=== PATIENT | female | born 1950 | race Caucasian/White ===

== ENCOUNTER 2017-03-25 06:53 | Day surgery (SDC) | payer MEDICAID ==
[2017-03-25 07:28] VITALS: BMI 23.9
[2017-03-25] MEDS ORDERED: Propofol 10 mg/ml Inj (20 ML) ONE (08:09)
[2017-03-25] MEDS ORDERED: Midazolam 2 MG/2 ML VIAL ONE (08:10)
[2017-03-25 08:54] VITALS: O2SAT 95
[2017-03-25] MEDS ORDERED: Sodium Chloride 0.9% 1,000 ML IV SCH (09:00)
[2017-03-25 09:04] VITALS: PULSE 52
[2017-03-25 09:22] VITALS: BP 121/65; RESP 16; TEMP 97.6
== END 2017-03-25 09:52 | disposition home or self-care (01) ==
LOC: ENDO 06:53
PROVIDERS: ATTEND Internal Medicine
DX: K29.70 Gastritis, unspecified, without bleeding (principal); K21.9 Gastro-esophageal reflux disease without esophagitis
CPT/HCPCS: 43239; 88305; 88342; J2001; J2250; J2704; J3010; J7030; J7040

== ENCOUNTER 2018-03-01 11:31 | Emergency (ER) | payer MEDICARE, MEDICAID ==
[2018-03-01 11:32] VITALS: BMI 23.3
[2018-03-01 11:57] VITALS: TEMP 98.4
[2018-03-01] MEDS ORDERED: Oxycodone/Acetaminophen 5/325 mg Tab PO STA (12:20)
--- NOTE | 2018-03-01 12:26 | ED PDOC ---
Arrival/HPI - General Chief Complaint: Lower Extremity Problem/Injury Time Seen by Provider: 03/01/18 12:20 Historian: Patient, Family (son at bedside) - History of Present Illness Narrative History of Present Illness (Text): 03/01/18 12:22 pt p/w + accidental trip and fall last night, pt states she was walking and her footware got caught on something, pt fell forward and twisted her right ankle inwards, braced fall with b/l outstretched arm; NO LOC - pre/post fall, no head injury, no neck pain/injury; pt states + right foot/ankle pain with right shoulder pain; pt was unable to stand by herself post fall, pt can stand and bear weight but with pain and limps when walking; pt states her ankle/foot pain was a 10/10; pt took aleve yesterday and today with min relief; pt states no fever/chills/sweats, no cp/sob/palpitations, no abd pain, no n/v, no numbness/ tingling; pt denied urinary/bowel changes, pt is here for further eval; pt's without other complaints. PCP: DR TIERNEY + hx of osteoporosis; HTN pt is right hand dominate Time/Duration: 24 hours Symptom Onset: Sudden Symptom Course: Unchanged Quality: Aching, Pressure, Tightness Severity Level: 10, Severe Activities at Onset: Other (with movement) Context: Walking, Exertion, Home, Other Past Medical History - Provider Review Nursing Documentation Reviewed: Yes - Travel History Have you recently traveled outside [place] w/in the past 3 mons?: No - Past History Past History: No Previous - Infectious Disease Hx of Infectious Diseases: None - Tetanus Immunization Tetanus Immunization: Unknown - Reproductive Menopause: Yes Currently : No - Cardiac Hx Hypertension: Yes - Neurological Hx Paralysis: No - HEENT Hx Glaucoma: Yes - Renal Hx Kidney Stones: Yes - Hematological/Oncological Hx Blood Transfusions: No Hx Blood Transfusion Reaction: No - Musculoskeletal/Rheumatological Hx Osteoporosis: Yes - Psychiatric Hx Emotional Abuse: No Hx Physical Abuse: No Hx Substance Use: No - Surgical History Hx Cataract Extraction: Yes - Anesthesia Hx Anesthesia: Yes Hx Anesthesia Reactions: No Hx Malignant Hyperthermia: No - Suicidal Assessment Feels Threatened In Home Enviroment: No Family/Social History - Physician Review Nursing Documentation Reviewed: Yes Family/Social History: No Known Family HX Smoking Status: Never Smoked Hx Alcohol Use: No Hx Substance Use: No Hx Substance Use Treatment: No Allergies/Home Meds Allergies/Adverse Reactions: Allergies No Known Allergies Allergy (Verified 03/01/18 11:57) Home Medications: Home Meds Medication Instructions Recorded Confirmed Dorzolamide 2% [Trusopt] 1 drop BOTHEYES BID 12/21/16 03/01/18 Gabapentin [Neurontin] 100 mg PO QPM 12/21/16 03/01/18 Latanoprost 0.005% Opht [Xalatan 1 drop EACHEYE HS 12/21/16 03/01/18 Opht] Metoprolol Succinate XL [Toprol XL] 50 mg PO QPM 12/21/16 03/01/18 Timolol 0.5% Ophth [Timoptic 0.5% 1 drop EACHEYE BID 03/18/17 03/01/18 Ophth Soln] Review of Systems - Review of Systems Constitutional: Normal Eyes: Normal ENT: Normal Respiratory: Normal. absent: SOB Cardiovascular: Normal. absent: Chest Pain Gastrointestinal: Normal. absent: Abdominal Pain Genitourinary Female: Normal Musculoskeletal: Other (right shoulder, right ankle/foot pain) Skin: Normal. absent: Rash Neurological: Normal. absent: Headache Endocrine: Normal Hemo/Lymphatic: Normal Psychiatric: Normal Physical Exam Vital Signs Reviewed: Yes Vital Signs Temp Pulse Resp BP Pulse Ox 03/01/18 11:57 98.4 F 77 18 151/76 H 98 03/01/18 11:32 98.4 F 77 20 151/76 H 98 Temperature: Afebrile Blood Pressure: Hypertensive Pulse: Regular Respiratory Rate: Normal Appearance: Positive for: Well-Appearing, Non-Toxic, Uncomfortable, Other (alert /awake, GCS = 15, oriented x 3, resting in bed, cooperative, uncomfortable, mild distress due to pain on exam) Pain Distress: Mild Mental Status: Positive for: Alert and Oriented X 3 - Systems Exam Head: Present: Atraumatic, Normocephalic Pupils: Present: PERRL, Other (no nystagmus, no photophobia, sclera anicteric, visual field intact b/l) Extroacular Muscles: Present: EOMI Conjunctiva: Present: Normal Ears: Present: Normal Mouth: Present: Moist Mucous Membranes, Normal Teeth, Other (no drooling/stridor , no exudate/lesions, uvula/tongue are midline) Pharnyx: Present: Normal Nose (External): Present: Atraumatic Nose (Internal): Present: Normal Inspection Neck: Present: Normal Range of Motion, Trachea Midline, Other (intact ROM, no midline tenderness, no gross deformities; no nuchal rigidity). No: Meningeal Signs, MIDLINE TENDERNESS, Paraspinal Tenderness Respiratory/Chest: Present: Clear to Auscultation, Good Air Exchange, Other ( CTA b/l, no w/r/r, no accessory muscle use noted, no tachypenia). No: Respiratory Distress, Accessory Muscle Use Cardiovascular: Present: Regular Rate and Rhythm, Normal S1, S2. No: Murmurs Abdomen: Present: Normal Bowel Sounds, Other (well nourished female, no focal tenderness, no masses/rebound/guarding/rigidity, no payne's sign, no mcburney' s point tenderness) Back: Present: Normal Inspection. No: CVA Tenderness, Midline Tenderness, Paraspinal Tenderness Upper Extremity: Present: Normal Inspection, Normal ROM, NORMAL PULSES, Neurovascularly Intact Lower Extremity: Present: NORMAL PULSES, Tenderness, Swelling, Neurovascularly Intact, Other (decr ROM to right ankle, + distal lateral malleolus tenderness ( inferior pole) with point tenderness noted on exam; slight swelling noted over the distal right mallolar/right mid/forefoot (dorsum), no gross deformities noted, no ecchymosis/lacerations noted; strength 5/5 grossly intact in all limbs ). No: Jennifer's Sign Neurological: Present: GCS=15, CN II-XII Intact, Speech Normal Skin: Present: Warm, Normal Color, Other (cap refill < 1sec, no ulcerations, no petechiae, no rashes) Psychiatric: Present: Alert, Oriented x 3 Medical Decision Making ED Course and Treatment: 03/01/18 12:15 Impression: right shoulder/ankle pain i have consider all the differential diagnosis regarding pt's chief medical complaints/clinical findings, including but are not limited to: r/o fx, unlikely dislocation, likely high grade strain/sprain? A/P: right shoulder/ankle pain - xray - RICE txt - air cast vs splint - supportive care - observe/reevaluation 03/01/18 13:30 pt felt slight improvement, pain is now 7/10 pt is awaiting Xray 1430 pt received her xray negative preliminary pt will receive RICE txt pt will receive lida wrap/lida cast to right ankle pt will receive crutches as well pt/family are made aware of pt's medical results pt is encouraged RICE txt pt is encouraged no heavy weight bearing/prolonged standing pt will f/u as directed pt will be discharged home Re-evaluation Time: 13:30 Reassessment Condition: Improving,but remains with symptoms - RAD Interpretation Narrative RAD Interpretations (Text): 03/01/18 15:03 PROCEDURE: Radiographs of the Right Shoulder HISTORY: right shoulder pain, s/p fall COMPARISON: No prior. FINDINGS: BONES: Three views of the right shoulder were performed. No fracture is seen. No lytic process is noted. JOINTS: No dislocation is seen. No significant degenerative spurring is seen in the glenohumeral region. No AC joint widening is seen. SOFT TISSUES: Visualized right lung is unremarkable as well as the right ribs. OTHER FINDINGS: None. IMPRESSION: No evidence of fracture or dislocation. --------- 03/01/18 15:03 PROCEDURE: Right foot x-ray HISTORY: right foot pain COMPARISON: Right ankle x-ray same day TECHNIQUE: Three views of the right foot were performed. FINDINGS: No fracture is seen. 5th metatarsal is intact. Mild DJD of the right 1st metatarsal phalangeal joint is noted with mild hallux valgus deformity. There is no abnormal widening of the tarsal bone region to suggest Lisfranc abnormality. No periosteal reaction is noted. Phalanges are intact. Mild soft tissue swelling is noted. Subtalar joint is unremarkable on the lateral view. 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 IMPRESSION: No fracture. Irregularity in the talar dome region suggestive of osteochondritis dissecans. PROCEDURE: Right ankle x-ray HISTORY: fall last night, right distal lateral mal pain COMPARISON: Right foot x-ray same day TECHNIQUE: Three views of the right ankle were performed. FINDINGS: No fracture is seen. No ankle mortise widening is noted. There is mild soft tissue swelling overlying the lateral malleolus and right lateral ankle region. Tibial plafond is normal in outline. No large ankle joint effusion is seen. Subtalar joint is unremarkable. There is mild lucency involving the medial aspect of the talus extending towards the talar dome region suggestive of subchondral cyst formation and osteochondritis. No irregularity of the overlying bone however is seen. IMPRESSION: No fracture. Mild soft tissue swelling consistent with ankle sprain. Lucency and mild sclerosis in the medial right talus and talar dome region consistent with osteochondritis desiccans or subchondral cyst formation. No bony irregularity of the contour of the outer cortex of the talus is noted. 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 No Sleep Is patient sleeping during reassessment? No Presence of Pain Presence of Pain Yes Disposition/Present on Arrival - Present on Arrival Any Indicators Present on Arrival: No History of DVT/PE: No History of Uncontrolled Diabetes: No Urinary Catheter: No History of Decub. Ulcer: No History Surgical Site Infection Following: None - Disposition Have Diagnosis and Disposition been Completed?: Yes Diagnosis: Ankle strain, Foot contusion, Shoulder contusion, Fall Disposition: HOME/ ROUTINE Disposition Time: 14:25 Patient Plan: Discharge Patient Problems: Current Active Problems Problem Status Onset Ankle strain Acute Foot contusion Acute Shoulder contusion Acute Fall Acute Condition: STABLE Discharge Instructions (ExitCare): Preventing Falls in the Older Adult, Ankle Sprain (DC), Contusion (DC), Shoulder Pain (DC) Print Language: SAMI Additional Instructions: Make sure to see your doctor in 1-2 days DRINK PLENTY OF FLUIDS REST your ankle/foot/leg avoid heavy weight bearing/prolonged standing ice your ankle/foot 15min/hr over the next 1-2 days take your medications as prescribed RETURN TO ED IF worse pain, cant breath, persistent vomiting, high fever >101- 102 for hours, altered behavior, slurr speech, facial changes, focal weakness ( arm/leg or both), unable to urinate, heavy/persistent bleeding, passing out, chest pain, or other medical emergencies Prescriptions: Ibuprofen [Motrin] 400 mg PO QID PRN #30 tab PRN Reason: Pain, Mild (1-3) oxyCODONE/Acetaminophen [Percocet 5/325 mg Tab] 1 tab PO TID PRN #10 tab PRN Reason: Pain, Moderate (4-7) Referrals: Alfredo Billy DO [Staff Provider] - Follow up with primary Brian Tierney MD [Primary Care Provider] - Follow up with primary Forms: [employer] (Serbian)
--- NOTE | 2018-03-01 14:07 | RAD ---
PROCEDURE: Radiographs of the Right Shoulder HISTORY: right shoulder pain, s/p fall COMPARISON: No prior. FINDINGS: BONES: Three views of the right shoulder were performed. No fracture is seen. No lytic process is noted. JOINTS: No dislocation is seen. No significant degenerative spurring is seen in the glenohumeral region. No AC joint widening is seen. SOFT TISSUES: Visualized right lung is unremarkable as well as the right ribs. OTHER FINDINGS: None. IMPRESSION: No evidence of fracture or dislocation.
--- NOTE | 2018-03-01 14:11 | RAD ---
PROCEDURE: Right ankle x-ray HISTORY: fall last night, right distal lateral mal pain COMPARISON: Right foot x-ray same day TECHNIQUE: Three views of the right ankle were performed. FINDINGS: No fracture is seen. No ankle mortise widening is noted. There is mild soft tissue swelling overlying the lateral malleolus and right lateral ankle region. Tibial plafond is normal in outline. No large ankle joint effusion is seen. Subtalar joint is unremarkable. There is mild lucency involving the medial aspect of the talus extending towards the talar dome region suggestive of subchondral cyst formation and osteochondritis. No irregularity of the overlying bone however is seen. IMPRESSION: No fracture. Mild soft tissue swelling consistent with ankle sprain. Lucency and mild sclerosis in the medial right talus and talar dome region consistent with osteochondritis desiccans or subchondral cyst formation. No bony irregularity of the contour of the outer cortex of the talus is noted.
--- NOTE | 2018-03-01 14:14 | RAD ---
PROCEDURE: Right foot x-ray HISTORY: right foot pain COMPARISON: Right ankle x-ray same day TECHNIQUE: Three views of the right foot were performed. FINDINGS: No fracture is seen. 5th metatarsal is intact. Mild DJD of the right 1st metatarsal phalangeal joint is noted with mild hallux valgus deformity. There is no abnormal widening of the tarsal bone region to suggest Lisfranc abnormality. No periosteal reaction is noted. Phalanges are intact. Mild soft tissue swelling is noted. Subtalar joint is unremarkable on the lateral view. 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 IMPRESSION: No fracture. Irregularity in the talar dome region suggestive of osteochondritis dissecans.
[2018-03-01 14:49] VITALS: BP 145/70; PULSE 70; RESP 17; O2SAT 99
== END 2018-03-01 14:59 | disposition home or self-care (01) ==
LOC: ED 11:31
DX: S96.911A Strain of unspecified muscle and tendon at ankle and foot level, right foot, initial encounter (principal); S90.31XA Contusion of right foot, initial encounter; S40.011A Contusion of right shoulder, initial encounter; W01.0XXA Fall on same level from slipping, tripping and stumbling without subsequent striking against object, initial encounter; I10 Essential (primary) hypertension